=== PATIENT | male | born 1970 | race Caucasian/White ===

== ENCOUNTER 2017-03-21 14:52 | Emergency (ER) | payer OTHER ==
--- NOTE | 2017-03-21 15:20 | ED PDOC ---
Upper Extremity Pain/Injury Time Seen by Provider: 03/21/17 15:07 Chief Complaint (Nursing): Finger,Hand,&Wrist Chief Complaint (Provider): Left pinky injury History Per: Patient History/Exam Limitations: no limitations Onset/Duration Of Symptoms: Hrs (x 4 hours ago) Current Symptoms Are (Timing): Still Present Additional Complaint(s): Phan is a 46 y/o male who presents to the ED complaining of a left pinky injury after sustaining a fall 4 hours ago. He states he tripped and fell, while playing with his children on the playground. Patient has not iced the injury nor taken medication for relief of pain. PMD: Unknown Past Medical History Reviewed: Historical Data, Nursing Documentation, Vital Signs - Medical History PMH: No Chronic Diseases Denies: Chronic Kidney Disease - Surgical History Surgical History: No Surg Hx - Family History Family History: States: Unknown Family Hx - Social History Current smoker - smoking cessation education provided: No Alcohol: None Drugs: Denies - Allergies Allergies/Adverse Reactions: Allergies Allergy/AdvReac Type Severity Reaction Status Date / Time No Known Allergies Allergy Verified 03/21/17 14:59 Review of Systems ROS Statement: Except As Marked, All Systems Reviewed And Found Negative Musculoskeletal: Positive for: Hand Pain (Left pinky pain and swelling) Physical Exam - Reviewed Nursing Documentation Reviewed: Yes Vital Signs Reviewed: Yes - Physical Exam Appears: Positive for: Well, Non-toxic, No Acute Distress Head Exam: Positive for: ATRAUMATIC, NORMAL INSPECTION, NORMOCEPHALIC Skin: Positive for: Normal Color, Warm, Dry Eye Exam: Positive for: EOMI, Normal appearance, PERRL Neck: Positive for: Normal, Painless ROM, Supple Extremity: Positive for: Normal ROM (Full ROM but tender), Tenderness ( tenderness on palpation to the middle phalanx, neurovascularly intact), Swelling (Left pinky), Other (Ecchymosis) Neurologic/Psych: Positive for: Alert, Oriented. Negative for: Motor/Sensory Deficits Medical Decision Making Medical Decision Making: Time: 15:07 Initial Impression: Left pinky injury Initial Plan: --Pending X-Ray Left Hand --Given Motrin for pain management Time: 15:20 --X-Ray reviewed by me: Fracture noted to the middle phalanx --Will be given finger splint and instructed to follow up with Hand Surgeon Clinical Impression: Fracture Upon provider evaluation patient is medically stable, and requires no further treatment in the ED at this time. Patient will be discharged home with finger splint. Counseling was provided and all questions were answered regarding diagnosis and need for follow up with Hand surgeon. There is agreement to discharge plan. Return if symptoms persist or worsen. Scribe Attestation: Documented by Kelsey Enrique, acting as a scribe for Anyi Lees PA-C Provider Scribe Attestation: All medical record entries made by the Scribe were at my direction and personally dictated by me. I have reviewed the chart and agree that the record accurately reflects my personal performance of the history, physical exam, medical decision making, and the department course for this patient. I have also personally directed, reviewed, and agree with the discharge instructions and disposition. Disposition - Clinical Impression Clinical Impression: Finger fracture - Patient ED Disposition Is Patient to be Admitted: No Counseled Patient/Family Regarding: Studies Performed, Diagnosis, Need For Followup - Disposition Referrals: Basil Silver MD [Medical Doctor] - Disposition Time: 15:38 Condition: STABLE Instructions: Finger Fracture (ED) Forms: [facility] (Angolan)
--- NOTE | 2017-03-22 09:35 | RAD ---
PROCEDURE: Left Hand Radiographs. HISTORY: fifth injury COMPARISON: None. FINDINGS: BONES: Fracture along the volar aspect of the 5th middle phalanx. JOINTS: Normal. No osteoarthritic changes. SOFT TISSUES: Diffuse soft tissue swelling. OTHER FINDINGS: None. IMPRESSION: Fracture along the volar aspect of the 5th middle phalanx.
== END 2017-03-21 15:40 | disposition home or self-care (01) ==
LOC: H.ER 14:52
DX: S62.607A Fracture of unspecified phalanx of left little finger, initial encounter for closed fracture (principal); W01.0XXA Fall on same level from slipping, tripping and stumbling without subsequent striking against object, initial encounter; Y93.9 Activity, unspecified; Y92.838 Other recreation area as the place of occurrence of the external cause; Y99.9 Unspecified external cause status